=== PATIENT | male | born 1990 | race African-American/Black ===

== ENCOUNTER 2022-09-19 10:26 | Outpatient (RCR) | payer OTHER, SELFPAY ==
[2022-09-25 12:19] LABS: Hematocrit 49.1 % (38.5-50.0); Hemoglobin 15.4 g/dL (13.2-17.1); MCH 21.4 pg (27.0-33.0); MCV 68.2 fL (80.0-100.0); RDW 17.1 % (11.0-15.0)
== END 2022-09-22 12:29 ==
LOC: AMCINF 10:26
PROVIDERS: Visit Provider Internal Medicine
DX: R71.8 Other abnormality of red blood cells (principal)
CPT/HCPCS: 36415; 83021; 85660

== ENCOUNTER 2024-03-17 08:47 | Outpatient (CLI) | payer OTHER, SELFPAY ==
--- NOTE | 2024-04-14 10:14 | WPDSLEEPSTUD ---
Sleep Study Date of Study: 03/17/24 Ordering Provider: Kodi Roque APRN Interpreting Physician: Felicity He MD Sleep Study Type: Polysomnogram Height: 1.83 m Weight: 170.097 kg Body Mass Index: 50.8 Neck Circumference (inches): 19 [place]: 6 Reason for Sleep Study Loud snoring, multiple night time awakenings, witnessed apneas Sleep History Benson Senior is a 34-year-old man with snoring for years, worsening with weight gain. His has witnessed him having apneas during sleep. His medical comorbidities include anxiety, seasonal allergies with asthma and low back pain. He wakes up numerous times throughout the night. He has difficulty falling asleep and staying asleep. He does not awaken from sleep feeling short of breath nor does he awaken at night with heartburn, belching or coughing. He constantly snores, and frequently this is loud enough that others complain. He frequently has difficulty sleeping when he has a cold. He never wakes up gasping for breath at night but he does frequently has breathing problems at night observed by others. He does not sweat excessively at night. He frequently notices his heart pounding or beating irregularly at night. He rarely falls asleep during the day, never falls asleep involuntarily or while driving. He rarely has loss of muscle tone with strong emotion. He rarely has daytime difficulties due to excessive sleepiness. He is an financial administrative assistant. He occasionally feels paralyzed on waking or falling asleep. He never has vivid dreamlike scenes upon awakening or falling asleep. He occasionally feels afraid to go to sleep. He rarely has nightmares. He occasionally remembers his dreams. He rarely has racing thoughts. He occasionally feels sad, depressed, or anxious. He rarely has muscular tension. He never notices parts of his body jerking. He does not kick at night. He does not have crawling or aching feelings in his legs. He does not have any kind of leg pain at night. He rarely has morning jaw pain. He does not grind his teeth during sleep. He occasionally is bothered by pain during the day. He has never awakened by pain during the night. He never wakes up feeling stiff in the morning. He rarely wakes up with sore achy muscles. He occasionally wakes up with pain in the neck and spine. He has fatigue. His normal bedtime is between 8:00 p.m. and 10:00 p.m., falling asleep within 20-30 minutes, waking 3 or more times every night for less than a minute. Sometimes he adjust his position and returns to sleep. His normal wake time is 7:00 a.m.. On weekends, bedtime is later, between 10:00 p.m. and 12 midnight, wake time is 7:00 a.m.. He estimates getting at most 6 hours of sleep per night. He does not generally take naps in the afternoon or evening. A short nap lasting 10-15 minutes is not refreshing. He is usually drowsy for 1 hour after waking. He feels better in the morning compared to other times of day. Habits: Tobacco: never smoker Caffeine: none Alcohol: none Recreational substances: none PMFSH Past Medical History Medical History Anxiety Mild intermittent asthma Chronic bilateral low back pain with sciatica Obesity (BMI 30-39.9) Snoring Social History Social History Smoking status: Never smoker Alcohol intake: never Substance use: never Living arrangements: with family Occupation/Education: occupation Medications Home Medications ?Medication ?Instructions ?Recorded ?Confirmed ?Type albuterol sulfate 90 mcg/actuation 2 puff inhalation Q8H PRN 12/30/23 12/31/23 History aerosol inhaler cetirizine 10 mg capsule (All Day 10 mg PO DAILY PRN 12/30/23 12/31/23 History Allergy (cetirizine)) fluticasone propionate 50 2 spray intranasal DAILY PRN 12/30/23 12/31/23 History mcg/actuation nasal spray,suspension (Flonase Allergy Relief) eszopiclone 2 mg tablet 2 mg PO ONCE #1 tablet 12/31/23 12/31/23 Rx Sleep Procedure A full night polysomnogram using the [employer] multi-channel system recorded the standard physiologic parameters including EEG, EOG, submentalis EMG, anterior tibialis EMG, EKG, body position, nasal and oral airflow using nasal pressure sensor and thermistor. Respiratory parameters of chest and abdominal movements were recorded with Respiratory Inductance Plethysmography belts. Oxygen saturation was recorded by pulse oximetry. Video monitoring was also performed. Sleep stages, periodic limb movements, and EEG arousals were scored in 30 second epochs according to the criteria of the AASM Scoring Manual. The Apnea-Hypopnea Index was calculated using CMS guidelines for definition of hypopnea while scoring respiratory events. The patient did not meet criteria early enough in the night for a split night study so this was conducted as a basic nocturnal polysomnogram. Sleep Architecture The total recording time was 513.4 minutes. The total sleep time was 371.0 minutes. Sleep latency was 6.9 minutes. REM latency was 264.5 minutes. Sleep efficiency was 72.3%. The patient had 85 awakenings for an awakening index of 13.7. Wake after sleep onset time was 135.0 minutes. The patient spent 108.5 minutes, 29.2% of total sleep time in Stage N1. The patient spent 217.5 minutes, 58.6% in Stage N2. The patient spent 1.5 minutes, 0.4% in Stage N3. The patient spent 43.5 minutes, 11.7% in Stage REM sleep. Respiratory Analysis The patient had 43 hypopneas, 21 obstructive apneas, 2 mixed apneas, and 6 central apneas for an overall Apnea Hypopnea Index of 11.6. The REM Apnea Hypopnea Index was 71.7. The NREM Apnea Hypopnea Index was 4.4. The patient had a Central Apnea Hypopnea Index of 1.0. The supine apnea-hypopnea index is 3.6, the nonsupine index is 16.1. There were no Respiratory Effort Related Arousals. The Respiratory Disturbance Index is 18.9 events per hour. There was no evidence of Kris-Baker Respirations. Arousals There were 219 total arousals for an arousal index of 35.4. There were 154 spontaneous arousals for an index of 24.9. There were 37 arousals due to respiratory events for an index of 6.0. There were no arousals due to periodic limb movements. There were 28 arousals due to isolated limb movements for an index of 4.5. Periodic Limb Movements The patient had 41 isolated limb movements with an index of 6.6. The patient had no periodic limb movements. Patient had a total of 41 limb movements with a total limb movement index of 6.6. Oximetry Data The patient had an average oxygen saturation of 92.9% in sleep with a minimum oxygen saturation of 82% and a maximum oxygen saturation of 98%. The patient had 75 oxygen desaturations that were 4% or greater resulting in an Oxygen Desaturation Index of 12.1. The patient spent 1.9 minutes, 0.4% of total sleep time with an oxygen saturation below 88%. Snoring Profile Snoring was mild and continuous. Cardiac Profile EKG showed normal sinus rhythm, average pulse rate of 66 bpm with a minimum pulse of rate of 51 bpm and a maximum pulse rate of 94 bpm.? No arrhythmias noted. EEG Profile Unremarkable, no evidence of seizures. Assessment and Plan Assessment and Plan (1) Obstructive sleep apnea: Code(s): G47.33 - Obstructive sleep apnea (adult) (pediatric) Status: Acute Assessment and Plan: This basic nocturnal polysomnogram March 17, 2024 shows mild obstructive sleep apnea, the apnea-hypopnea index is 11.6 with desaturation 82% and snoring. Patient had extremely fragmented sleep, had constant shifts between wake, stage 1 and stage 2 sleep. He had fragmented REM. His REM apnea-hypopnea index was 66.2. During the entire night, nonsupine sleep had a higher AHI 16.1 compared to supine sleep 3.6. He had extraordinarily fragmented sleep with constant shifts between wake, stage 1 and stage 2 sleep. This patient has a medical comorbidity of anxiety and as such he qualifies for a CPAP titration with mild obstructive sleep apnea. With anxiety and fragmented sleep he would not be a good candidate for auto PAP. I recommend he has a full night CPAP titration with a sleep aid available, for use if needed, at the sleep lab. He should not nap on the day of the study. He should not take the sleep aid until the start of the sleep test. Patient has excellent sleep hygiene. He has complains of allergies and asthma. These conditions should be well treated prior to CPAP titration. BMI is 50. Weight management is advised. Clinical data suggests that weight loss of 10% can reduce the severity of respiratory events and snoring and improve AHI by as much as 25%. Data The data obtained during this sleep study is adequate for interpretation. Certification This sleep study has been reviewed by a board certified sleep medicine physician.
[2024-04-14 10:52] VITALS: BMI 50.8
== END 2024-03-18 06:29 | disposition home or self-care (01) ==
LOC: ANHCSM 08:49
PROVIDERS: PCP Family Medicine; Visit Provider Nurse Practitioner Family
DX: G47.33 Obstructive sleep apnea (adult) (pediatric) (principal)
CPT/HCPCS: 95810

== ENCOUNTER 2024-05-09 09:16 | Emergency (ER) | payer OTHER, SELFPAY ==
[2024-05-09 09:24] VITALS: BP 114/82; PULSE 65; RESP 16; TEMP 36.3; O2SAT 100
--- NOTE | 2024-05-09 09:34 | ED.URI ---
HPI - URI/Sore Throat General Chief Complaint: Upper Respiratory Infection Stated Complaint: sinus problem Time Seen by Provider: 05/09/24 09:21 Source: patient Mode of arrival: ambulatory Limitations: no limitations History of Present Illness HPI Narrative: Patient is a 34 male who presents with 4 days sinus congestion, sinus pressure, lost taste and smell started yesterday. Denies any fever, chills, sore throat, nausea vomiting, diarrhea. Does report slight intermittent cough. Has been taking Sudafed. Related Data Home Medications ?Medication ?Instructions ?Recorded ?Confirmed ?Last Taken ?Type albuterol sulfate 90 mcg/actuation 2 puff inhalation Q8H PRN 12/30/23 12/31/23 Unknown History aerosol inhaler cetirizine 10 mg capsule (All Day 10 mg PO DAILY PRN 12/30/23 12/31/23 Unknown History Allergy (cetirizine)) fluticasone propionate 50 2 spray intranasal DAILY PRN 12/30/23 12/31/23 Unknown History mcg/actuation nasal spray,suspension (Flonase Allergy Relief) Allergies Allergy/AdvReac Type Severity Reaction Status Date / Time No Known Allergies Allergy Unverified 12/31/23 14:36 Review of Systems Review of Systems: All systems reviewed & are unremarkable except as noted in HPI and below Constitutional: Constitutional: Denies chills, Denies fatigue, Denies fever(s), Denies headache(s), Denies malaise and Denies weakness Eyes: Eyes: Denies blurry vision, Denies itchy eyes and Denies loss of vision ENT: Denies otalgia, Denies headache(s), Reports nasal congestion, Denies sinus pain, Reports sinus pressure and Denies sore throat Cardiovascular: Cardiovascular: Denies chest pain, Denies irregular heart rhythm and Denies dyspnea Respiratory: Respiratory: Reports cough and Denies dyspnea Gastrointestinal: Gastrointestinal: Denies abdominal pain, Denies diarrhea, Denies nausea and Denies vomiting Musculoskeletal: Musculoskeletal: Denies back pain, Denies myalgias and Denies arthralgias Integumentary/Breasts: Skin/Breast: Denies pruritus and Denies rash Neurologic: Denies headache(s), Denies loss of vision and Denies weakness Psychiatric: Psychiatric: Reports no additional psychiatric complaints Endocrine: Endocrine: Denies fatigue Allergic/Immunologic: Allergic/Immunologic: Denies itchy eyes PMFSH Past Medical History Medical History Anxiety Mild intermittent asthma Chronic bilateral low back pain with sciatica Obesity (BMI 30-39.9) Snoring Social History Social History Smoking status: Never smoker Alcohol intake: never Substance use: never Living arrangements: with family Occupation/Education: occupation Comments At time of signature, agree with nursing past medical, surgical, social and family history. There is no relevant family history pertinent to the presenting complaint. Exam Const: General: cooperative, healthy appearing, comfortable, no acute distress and well nourished Nutritional Appearance: well nourished Orientation/consciousness: patient oriented x3 Limitations: no limitations HENMT: Head: normal to inspection, normocephalic and atraumatic Ears: hearing grossly normal bilaterally, external ears normal, TM's normal bilaterally, EAC's normal and no periauricular adenopathy Face/Nose/Sinus: Normal external nose present, Abnormal mucous membranes and turbinates present erythematous bilateral and diffuse, normal facial exam, sinuses nontender and face symmetric Face and sinus: normal facial exam, sinuses nontender and face symmetric Mouth: Yes Normal oral and palatal mucosa present, Yes lip normal, Yes tongue normal, Yes Normal salivary glands and ducts present, Yes oropharynx normal and Yes moist mucous membranes Teeth and gingiva: dentition normal Throat: posterior oropharynx normal, tonsils normal and uvula midline Eyes: General: appearance normal, both eyes and all related structures Alignment and Position: alignment normal and position normal Periorbital: periorbital findings normal Eyelids: eyelids normal Pupils: Equal, round and reactive pupils present Neck: Neck: normal visual inspection, full ROM, no lymphadenopathy and supple Chest: Chest palpation & inspection: normal inspection of the chest and normal palpation of entire chest wall Resp: Effort & Inspection: normal respiratory effort and able to speak in complete sentences Auscultation: clear to auscultation bilaterally, no crackles, no rales, no rhonchi and no wheezes Cardio: Rate: regular rate Rhythm: regular rhythm Heart sounds: S1 normal heart sound present and S2 normal heart sound present GI: Inspection: normal to inspection Skin: General skin exam: normal color and no rashes or lesions noted Neuro: General: patient oriented x3 and moves all extremities Cranial nerves: Yes Equal, round and reactive pupils present Speech: normal speech Gait exam (Neuro): Normal gait present Extrem: General: normal to inspection, full ROM and no edema Psych: Appearance: grossly normal and well kempt Mental Status: mental status grossly normal Speech and movement: Normal speech and movement present Affect: normal affect Attitude: cooperative Thought process: Normal thought process present Course Course Emergency Course: Discharge instructions reviewed with patient, as well as provided in writing per nursing staff. The instructions also include specific and strict return/GO TO THE ER as well as f/u information. All questions have been answered, and the patient deny any further questions with discharge and discharge plan. Portions of this record may have been created with voice recognition software Level of Care: Express Care Visit Vital Signs Vital signs: Vital Signs Temperature 36.3 C L 05/09/24 09:24 Pulse Rate 65 05/09/24 09:24 Respiratory Rate 16 05/09/24 09:24 Blood Pressure 114/82 05/09/24 09:24 Pulse Oximetry 100 05/09/24 09:24 Oxygen Delivery Room Air 05/09/24 09:24 Temperature 36.3 C L 05/09/24 09:24 Pulse Rate 65 05/09/24 09:24 Respiratory Rate 16 05/09/24 09:24 Blood Pressure 114/82 05/09/24 09:24 Pulse Oximetry 100 05/09/24 09:24 Oxygen Delivery Room Air 05/09/24 09:24 Reviewed MDM - URI/Sore Throat MDM Narrative Medical decision making narrative: Pt well hydrated appearing, in no respiratory distress, hemodynamically stable. Recommend supportive care. The patient is stable at time of discharge the clinical impression was discussed and the patient was given the opportunity to ask questions, which were addressed as completely as possible given the information available at present. Anticipatory guidance and return to care precautions were discussed and the importance of primary care follow-up was stressed and encouraged. The patient voiced understanding of the plan, indications to return, and the need for follow-up. Differential diagnosis considered: Bronchitis, Camara virus, strep pharyngitis, allergic rhinitis, upper respiratory tract infection, sinusitis, rhinosinusitis, nasopharyngitis. viral pharyngitis, otitis media, otitis externa, otitis effusion, foreign body, cerumen impaction, viral syndrome, and influenza.? Exam findings show no acute concerns or changes; patient is non-toxic appearing and is in no distress.? Patient is appropriate for outpatient treatment and follow-up.? Medical Records Attestation: I reviewed the patient's medical records. Lab Data Attestation: I reviewed the patient's lab results. Labs: Lab Results 05/09/24 Range/Units 09:27 POC Influenza A Ag Negative (Negative) POC Influenza B Ag Negative (Negative) POC SARS CoV-2 Ag Negative (Negative) Discharge Plan Discharge Clinical Impression: Upper respiratory infection Qualifiers: URI type: acute nasopharyngitis (common cold) Qualified Code(s): J00 - Acute nasopharyngitis [common cold] Patient Disposition: Home, Self-Care Condition: Stable Instructions: Upper Respiratory Infection (ED) Additional Instructions: Your Covid and flu are both negative Your symptoms are likely due to a viral illness, which is not treated with antibiotics. Viral symptoms can be present for up to a few weeks. -For pain/fever, you may take: Tylenol 650-1000mg by mouth every 4-6 hours. Do not exceed 4000mg in 24 hours. Advil (Ibuprofen) 600 mg by mouth every 6 hours. Do not exceed 2400mg in 24 hours. 8 AM: Tylenol 11 AM: Ibuprofen 2 PM: Tylenol 5 PM: Ibuprofen 8 PM: Tylenol 11 PM: Ibuprofen 2 AM: Tylenol 5 AM: Ibuprofen -Antihistamine medication such as Benadryl/Zyrtec at night and Claritin/Cathryn during the day can help improve symptoms. -Use Flonase twice a day for 5 days then daily to help reduce the inflammation and dry up your sinuses. Symptomatic treatment of a sinus infection aims to relieve symptoms. These treatments do not shorten the duration of illness. -Nasal decongestant sprays, including oxymetazoline (Afrin) and phenylephrine (Juan Carlos-Synephrine), can be used to temporarily treat congestion. However, these sprays should not be used for more than two to three days due to the risk of rebound congestion (when the nose becomes congested constantly unless the medication is used repeatedly), possible addiction, and long-term consequences of frequent use, including persistent nasal dryness and crusting, which is very difficult to treat once it has developed. -You can also use Sudafed behind the pharmacy counter(12 or 24 hour). Be sure to drink plenty of water with these medications at least 8 ounces with every dose and it is important to drink 8 to 10 glasses of water per day. Water is a natural decongestant -Eat and drink things that are easy to swallow, like tea or soup, or popsicles. -Oral rinses such as: Salt water gargles and/or may use topical anesthetic (eg. Chloraseptic spray) or lozenges to relieve dryness or throat pain). -Frequent hand washing or hand cytopathologist is one of the best ways to prevent spread of infection. -Using a vaporizer or humidifier at night will also help thin secretions and help with coughing up phlegm. Call your Primary Care Doctor and make a follow-up appointment in 3 days. If your cough worsens, you develop a fever greater than 103, you develop shaking chills, a fast heartbeat, trouble breathing and/or feel you are are breathing much faster than usual, call your Primary Care Doctor or go to the ER. Patient Language: Norwegian Prescriptions: New fluticasone propionate [Flonase Allergy Relief] 50 mcg/actuation spray,suspension 1 spray intranasal DAILY Qty: 16 0RF Rx Instructions: administer into each nostril No Action albuterol sulfate 90 mcg/actuation HFA aerosol inhaler 2 puff inhalation Q8H PRN All Day Allergy (cetirizine) 10 mg capsule 10 mg PO DAILY PRN fluticasone propionate [Flonase Allergy Relief] 50 mcg/actuation spray,suspension 2 spray intranasal DAILY PRN Rx Instructions: administer into each nostril eszopiclone 2 mg tablet 2 mg PO ONCE Qty: 1 0RF Rx Instructions: Take tablet with you to sleep center for sleep study, if needed eszopiclone 3 mg tablet 3 mg PO ONCE Qty: 1 0RF Rx Instructions: Take tablet with you to sleep center for sleep study Follow-up/Referrals: Erinn,Torie Chacko MD [Primary Care Provider] - 3 Days Stand Alone Forms: Work/School Release IP Time of Disposition: 10:01
[2024-05-09 09:46] LABS: EDCOVIDSCREEN Negative (Negative); EDINFLUASCREEN Negative (Negative); EDINFLUBSCREEN Negative (Negative)
== END 2024-05-09 10:06 | disposition home or self-care (01) ==
PROVIDERS: Emergency Provider Nurse Practitioner Family; PCP Family Medicine
DX: J00 Acute nasopharyngitis [common cold] (principal); Z20.822 Contact with and (suspected) exposure to COVID-19; J45.909 Unspecified asthma, uncomplicated; E66.9 Obesity, unspecified; Z68.42 Body mass index [BMI] 45.0-49.9, adult
CPT/HCPCS: 87426; 87804; 99213; G0463

== ENCOUNTER 2024-07-07 07:47 | Outpatient (CLI) | payer OTHER, SELFPAY ==
--- OUTSIDE RECORDS SUMMARY | 2024-06-02 09:14 | XMS_ITS | Clinical Summary ---
Author Organization [facility] [place] [address] [facility] Address [address] [place] [address] Care Team Providers Care Sanitary Napkin Machine Tender Name Role Phone Major Dyer MD Primary Care Provider Allergies No known active allergies Medications No known medications Active Problems No known active problems Medical History Medical History Date Comments Anxiety Depression Family History Medical History Relation Name Comments Anxiety disorder Mother Depression Mother Relation Name Status Comments Mother Social History Tobacco Use Types Packs/Day Years Used Date Smoking Tobacco: Never Smokeless Tobacco: Never Personal Safety Answer Date Recorded Getting School Help Needed Not on file 04/25 Sex and Gender Information Value Date Recorded Sex Assigned at Not on file Legal Sex Male 11:09 AM CDT Gender Identity Not on file Sexual Orientation Not on file Obstetrics History Last Filed Vital Signs Vital Sign Reading Time Taken Comments Blood Pressure 162/92 09/18/2020 11:26 AM CDT Pulse 80 09/18/2020 11:26 AM CDT Temperature 36.4 C (97.5 F) 09/18/2020 11:26 AM CDT Respiratory Rate 20 09/18/2020 11:2 6 AM CDT Oxygen Saturation 98% 09/18/2020 11: 26 AM CDT Inhaled Oxygen Concentration - - Weight 163.9 kg (361 lb 6.4 oz) 021 11:26 AM CDT Height 184.6 cm (6' 0.68) 09/18/2020 1 1:26 AM CDT Body Mass Index 48.11 09/18/2020 11:26 AM CDT Plan of Treatment Not on file Insurance [facility] Care Teams Sanitary Napkin Machine Tender Relationship Specialty Start Date End Date Major Dyer MD [address] [place], [place] [id number] [address] PCP - General Family Medicine 09/18/20
--- OUTSIDE RECORDS SUMMARY | 2024-06-02 09:14 | XMS_ITS | Referral Summary ---
Author Organization [facility] [place] [address] [facility] Address [address] [place] [address] Care Team Providers Care Clay Transporter Name Role Phone Major Dyer MD Primary Care Provider Allergies No known active allergies Medications No known medications Active Problems No known active problems Social History Tobacco Use Types Packs/Day Years Used Date Smoking Tobacco: Never Smokeless Tobacco: Never Personal Safety Answer Date Recorded Getting School Help Needed Not on file 04/25 Sex and Gender Information Value Date Recorded Sex Assigned at Not on file Legal Sex Male 11:09 AM CDT Gender Identity Not on file Sexual Orientation Not on file Last Filed Vital Signs Vital Sign Reading [...] Plan of Treatment Not on file Insurance [employer] [facility] H[facility]/PPO Address: [address] [address] Care Teams Clay Transporter Relationship Specialty Start Date End Date Major Dyer MD [address] [place] [address] [place] [address] PCP - General Family Medicine 09/18/20
--- OUTSIDE RECORDS SUMMARY | 2024-06-02 09:14 | XMS_ITS | Clinical Summary ---
Author Organization [facility] [employer] [place] Address [address] [place] [address] Care Team Providers Care Dairy Machine Operator Farmworker Name Role Phone Lynda Chen MD Primary Care Provider [phone] Allergies No known active allergies Medications albuterol sulfate HFA 90 mcg/actuation aerosol inhalerIndicatio ns:Mild intermittent asthma, unspecified whether complicated Take 2 Puffs by inhalation every 6 hours as needed for Shortness of Breath. 8.5 Gram 03/18/19 25 Active fluticasone propionate (FLONASE) 50 mcg/spray [place], Suspension nasal inhaler Administer 2 Sprays in each nostril daily. 16 Gram 03/18/19 25 Active cetirizine (ZyrTEC) 10 mg tablet Take 1 Tablet (10 mg) by mouth daily. 100 Tablet 05/18/19 25 Active tirzepatide, weight loss, (Zepbound) 5 mg/0.5 mL Pen InjectorIndicati ons:Morbid obesity with body mass index of 40.0-49.9 (CMS/HCC) Inject 0.5 mL by subcutaneous injection every 7 days. 6 mL 05/24/19 25 Active cetirizine (ZyrTEC) 10 mg tabletIndication s:Pressure sensation in right ear Take 1 Tablet (10 mg) by mouth daily. 100 Tablet 10/20/19 24 025 Discontin ued(Reord er) tirzepatide, weight loss, (Zepbound) 5 mg/0.5 mL Pen InjectorIndicati ons:Morbid obesity with body mass index of 40.0-49.9 (CMS/HCC) Inject 0.5 mL by subcutaneous injection every 7 days. 2 mL 1 04/19/19 25 025 Discontin ued(Reord er) tirzepatide, weight loss, (Zepbound) 5 mg/0.5 mL Pen InjectorIndicati ons:Morbid obesity with body mass index of 40.0-49.9 ([facility]/HCC) Inject 0.5 mL by subcutaneous injection every 7 days. 2 mL 05/18/19 025 Discontin ued(Reord er) Active Problems Problem Noted Date Diagnosed Date Low HDL (under 40) 03/18/2024 Major depressive disorder, r ecurrent episode, moderate degree 02/18/2022 Non-seasonal allergic rhinitis 01/15/2022 Mild intermittent asthma without complication Anxiety and depression 01/15/2022 Snoring 01/15/2022 Daytime sleepiness 01/15/2022 Tinea versicolor 01/15/2022 Resolved Problems Problem Noted Date Diagnosed Date Resolved Date Cerumen impaction 04/16/2011 02/03/2023 Encounters Date Type Department Care Team Description 05/24/2024 External Device Data STL ABSTRACTION Provider, Abstract 05/23/2024 Orders Only [facility] [employer] [place] [address] [place] [phone] Neha Moses, MATHEW Morbid obesity with body mass index of 40.0-49.9 ([facility]/HCC) 05/17/2024 2:00 PM CDT Office Visit [facility] [employer] [place] [address] [place] [phone] Neha Moses, MATHEW Morbid obesity with body mass index of 40.0-49.9 ([facility]/HCC) (Primary Dx); Daytime sleepiness 05/11/2024 External Device Data STL ABSTRACTION Provider, Abstract 04/30/2024 External Device Data STL ABSTRACTION Provider, Abstract 04/29/2024 External Device Data STL ABSTRACTION Provider, Abstract 04/26/2024 External Device Data STL ABSTRACTION Provider, Abstract 04/19/2024 2:00 PM JDE DEVELOPER Office Visit [facility] [employer] [place] [address] [place] [phone] Mireille Gaona, CODY Morbid obesity with body mass index of 40.0-49.9 (CMS/HCC) (Primary Dx) 04/19/2024 External Device Data STL ABSTRACTION Provider, Abstract 03/29/2024 External Device Data STL ABSTRACTION Provider, Abstract 03/18/2024 10:30 AM JDE DEVELOPER Office Visit [facility] [employer] [facility] [address] [place] [address] Lynda Chen MD Morbid obesity with body mass index of 40.0-49.9 (CMS/HCC) (Primary Dx); Mild intermittent asthma, unspecified whether complicated; Major depressive disorder, recurrent episode, moderate degree (CMS/HCC); Atypical chest pain; Sleep apnea, unspecified type; Screening for diabetes mellitus 03/16/2024 External Device Data STL ABSTRACTION Provider, Abstract 03/16/2024 External Device Data STL ABSTRACTION Provider, Abstract from Last 3 Months Immunizations Immunization Administration Dates Next Due (ADACEL/BOOSTRIX)(10 YR UP) TDAP VACCINE, 0.5ML, IM 10/13/2006 (PFIZER)(12 YR UP) COVID-19 VACCINE - EMERGENCY USE AUTHORIZATION, MRNA, [id number](PF) 30 MCG/0.3 ML IM SUSP 08/03/2020,07/13/2020 (RECOMBIVAX HB/ENGERIX-B)(0- 19 YRS) HEPATITIS B VACCINE 5 MCG/0.5 ML OR 10 MCG/0.5 ML PED OR ADOL 3 DOSE (PF), IM 10/13/2006 INFLUENZA VACCINE QUADRIVALENT 6 MOS UP IM 12/08 Meningococcal ACWY Vaccine, Unspecified Formulat ion 10/13/2006 Family History Medical History Relation Name Comments No Known Problems Father No Known Problems Half-Brother No Known Problems Half-Sister 1 No Known Problems Half-Sister 2 No Known Problems Maternal Grandfather Breast Cancer Maternal Grandmother Prema Senior Other Mother abnormal mammog dylan, had biopsy, no cancer Cancer Paternal Grandfather Cancer Paternal Grandmother Relation Name Status Comments Father Alive Half-Brother Alive Half-Sister 1 Alive Half-Sister 2 Alive Maternal Grandfather Alive Maternal Grandmother Prema Senior Mother Alive Paternal Grandfather Paternal Grandmother Social History Tobacco Use Types Packs/Day Years Used Date Smoking Tobacco: Never Smokeless Tobacco: Never Tobacco Cessation:Counseling Given: Not Answered Alcohol Use Standard Drinks/Week Comments Never 0 (1 standard drink = 0.6 oz pur e alcohol) Sex and Gender Information Value Date Recorded Sex Assigned at Not on file Legal Sex Male 3:41 PM CDT Gender Identity Not on file Sexual Orientation Not on file Last Filed Vital Signs Vital Sign Reading Time Taken Comments Blood Pressure 128/78 05/17/2024 1:59 PM CDT Pulse 64 05/17/2024 1:59 PM CDT Temperature 36.2 C (97.2 F) 05/17/2024 1:59 PM CDT Respiratory Rate 18 05/17/2024 1:59 PM CDT Oxygen Saturation 98% 05/17/2024 1:59 PM CDT Inhaled Oxygen Concentration - - Weight 157.9 kg (348 lb) 05/17/2024 1:59 PM CDT Height 185.4 cm (6' 1) 05/17/2024 1:59 PM CDT Body Mass Index 45.91 05/17/2024 1:59 PM CDT Plan of Treatment Upcoming Encounters Date Type Department Care Team (Late st Contact Info) Description 06/10/2024 8:20 AM CDT Office Visit [facility] [employer] [facility] [place] [address] [place] [address] 08/19/2024 10:00 AM CDT Office Visit [facility] [employer] [place] [address] [place] [address] Lynda Chen MD [address] [address] Health Maintenance Due Date Last Done Comments HEPATITIS B VACCINES (2 of 3 - 3-dose series) 11/10/2006 10/13/2006 DTAP/TDAP/TD VACCINES (2 - T d or Tdap) 10/13/2016 10/13/2006 INFLUENZA VACCINE (#1) 2023 , 12/08/2018 COVID-19 Vaccine (3 2023-2 5 season) 2023 08/03/2020, 07/13/2020 Preventative Visit- Commercial 02/24/2024 04/14/2011 HPV VACCINES Aged Out No longer eligi ble based on patient's age to complete this topic Insurance ALLEGIANCE OPEN ACCESS ALLEGIANCE OPEN ACCESS * Guarantor: [employer] Account Type Relation to Patient Date of Phone Billing Address Corporate Employer ATTN: [employer]ENT[employer]EREZ [address] [address] Care Teams Dairy Machine Operator Farmworker Relationship Specialty Start Date End Date Lynda Chen MD [address] [place] [phone] PCP - General Internal Medicine 10/21/23
--- OUTSIDE RECORDS SUMMARY | 2024-06-02 09:14 | XMS_ITS | Clinical Summary ---
Author Organization [facility] Curse Address [address] [place] [address] Care Team Providers Care Account Maintenance Representative Name Role Phone Unavailable Primary Care Provider Unavailabl e Source Comments [facility],non-owned Affiliates and Associated Physician Practices is amultiple site organization consisting of ambulatory clinics and hospital sitesin [place], [place], [place] and [place]. This disclosure is being madepursuant to the Care Everywhere program and may not contain all information available regarding this patient. Last updated 17.[facility] Curse Allergies No known active allergies Medications * Be aware that medications may not be up to date on this document. Alwaysverify current medications with the patient. Medication Sig Dispensed Refills Start Date End Date Status multivitamin daily (THERAGRAN) tablet Take 1 Tab by mouth daily with food Active Talc (ZEASORB) Active clotrimazole (LOTRIMIN AF) 1 % cream Apply to affected area 2 times daily Active Active Problems Problem Noted Date Diagnosed Date Routine general medical exam ination at a health care facility 04/16/2011 Cerumen impaction 04/16/2011 Immunizations Name Administration Dates Next Due HEP B VACCINE, PED/ADOL 10/13/2006 MENINGOCOCAL MENINGITIS 10/13/2006 TDAP (7yrs+) 10/13/2006 Family History Medical History Relation Name Comments Cancer Maternal Grandmother breast Relation Name Status Comments Maternal Grandmother Social History Tobacco Use Types Packs/Day Years Used Date Smoking Tobacco: Never Smokeless Tobacco: Never Alcohol Use Standard Drinks/Week Comments No 0 (1 standard drink = 0.6 oz pur e alcohol) Sex and Gender Information Value Date Recorded Sex Assigned at Not on file Gender Identity Not on file Sexual Orientation Not on file Last Filed Vital Signs Vital Sign Reading Time Taken Comments Blood Pressure 130/62 11/23/2015 3:35 PM CDT Pulse 57 11/23/2015 3:35 PM CDT Temperature 36.7 C (98 F) 11/23/2015 3:35 PM CDT Respiratory Rate 20 11/23/2015 3:35 PM CDT Oxygen Saturation 99% 11/23/2015 3:35 PM CDT Inhaled Oxygen Concentration - - Weight 145.2 kg (320 lb) 11/23/2015 3:35 PM CDT Height 185.4 cm (6' 1) 11/23/2015 3:35 PM CDT Body Mass Index 42.22 11/23/2015 3:35 PM CDT Plan of Treatment Health Maintenance Due Date Last Done Comments HEPATITIS B VACCINE (2 of 3 - 3-dose series) 11/10/2006 10/13/2006 HIV SCREENING 2007 HEPATITIS C SCREENING 04/03/2010 DTAP/TDAP/TD VACCINES (2 - T d or Tdap) 10/13/2016 10/13/2006 COVID-19 VACCINE (2023-2 5 season) 2023 DEPRESSION SCREENING 02/24/2024 INFLUENZA VACCINE (Season Ended) 2024 ZOSTER VACCINE (1 of 2) 2042 MENINGOCOCCAL GROUPS A/C/Y/W VACCINE Aged Out 10/13/2006 No longer eligible b ased on patient's age to complete this topic HIB VACCINE Aged Out No longer eligi ble based on patient's age to complete this topic HPV VACCINE Aged Out No longer eligi ble based on patient's age to complete this topic MENINGOCOCCAL (Group B) VACC INE SHARED DECISION-MAKING Aged Out No longer eligibl e based on patient's age to complete this topic PNEUMOCOCCAL VACCINE Aged Out No long er eligible based on patient's age to complete this topic
--- OUTSIDE RECORDS SUMMARY | 2024-07-07 07:59 | XMS_ITS | Clinical Summary ---
Author Organization [facility] [employer] [place] Address [address] [place] [address] Care Team Providers Care Comb Fixer Name Role Phone Lynda Chen MD Primary Care Provider [phone] Allergies No known active allergies Medications albuterol sulfate HFA 90 mcg/actuation aerosol inhalerIndicatio ns:Mild intermittent asthma, unspecified whether complicated Take 2 Puffs by inhalation every 6 hours as needed for Shortness of Breath. 8.5 Gram 5 Active fluticasone propionate (FLONASE) 50 mcg/spray [place], Suspension nasal inhaler Administer 2 Sprays in each nostril daily. 16 Gram 5 Active cetirizine (ZyrTEC) 10 mg tablet Take 1 Tablet (10 mg) by mouth daily. 100 Tablet 5 Active tirzepatide, weight loss, (Zepbound) 5 mg/0.5 mL Pen InjectorIndicati ons:Morbid obesity with body mass index of 40.0-49.9 (CMS/HCC) Inject 0.5 mL by subcutaneous injection every 7 days. 6 mL 5 Active Active Problems Problem Noted Date Diagnosed Date Sickle cell trait 06/13/2024 Alpha thalassemia trait 06/13/2024 Low HDL (under 40) 03/18/2024 Major depressive disorder, r ecurrent episode, moderate degree 02/18/2022 Non-seasonal allergic rhinitis 01/15/2022 Mild intermittent asthma without complication Anxiety and depression 01/15/2022 Snoring 01/15/2022 Daytime sleepiness 01/15/2022 Tinea versicolor 01/15/2022 Resolved Problems Problem Noted Date Diagnosed Date Resolved Date Cerumen impaction 04/16/2011 02/03/2023 Encounters Date Type Department Care Team Description 06/13/2024 Results Follow-Up [facility] [place] [address] [place] [phone] Lynda Chen MD HEMOGLOBIN A1C, CBC WITH DIFFERENTIAL, LIPID PANEL, Additional followed-up results: 2 06/10/2024 8:20 AM CDT Office Visit [facility] at [place] [address] [place] [phone] Screening for condition (Primary Dx); Morbid obesity with body mass index of 40.0-49.9 (CMS/HCC) 06/07/2024 External Device Data STL ABSTRACTION Provider, Abstract 05/24/2024 External Device Data STL ABSTRACTION Provider, Abstract 05/23/2024 Orders Only [facility] at [place] [address] [place] [address] Neha Moses, MATHEW Morbid obesity with body mass index of 40.0-49.9 (CMS/HCC) 05/17/2024 2:00 PM CDT Office Visit [place] [address] [place] [phone] Neha Moses, MATHEW Morbid obesity with body mass index of 40.0-49.9 (CMS/HCC) (Primary Dx); Daytime sleepiness 05/11/2024 External Device Data STL ABSTRACTION Provider, Abstract 04/30/2024 External Device Data STL ABSTRACTION Provider, Abstract 04/29/2024 External Device Data STL ABSTRACTION Provider, Abstract 04/26/2024 External Device Data STL ABSTRACTION Provider, Abstract 04/19/2024 2:00 PM SUBSTATION ENGINEER Office Visit [facility] [address] [place] [phone] Mireille Gaona, CODY Morbid obesity with body mass index of 40.0-49.9 (CMS/HCC) (Primary Dx) 04/19/2024 External Device Data STL ABSTRACTION Provider, Abstract from Last 3 Months Immunizations Immunization Administration Dates Next Due (ADACEL/BOOSTRIX)(10 YR UP) TDAP VACCINE, 0.5ML, IM 10/13/2006 (PFIZER)(12 YR UP) COVID-19 VACCINE - EMERGENCY USE AUTHORIZATION, MRNA, [id number](PF) 30 MCG/0.3 ML IM SUSP 08/03/2020,07/13/2020 (RECOMBIVAX [...] Sign Reading Time Taken Comments Blood Pressure 122/76 06/10/2024 8:27 AM CDT Pulse 64 05/17/2024 1:59 PM CDT Temperature 36.2 C (97.2 F) 05/17/2024 1:59 PM CDT Respiratory Rate 18 05/17/2024 1:59 PM CDT Oxygen Saturation 98% 05/17/2024 1:59 PM CDT Inhaled Oxygen Concentration - - Weight 154.2 kg (340 lb) 06/10/2024 8:27 AM CDT Height 185.4 cm (6' 1) 06/10/2024 8:27 AM CDT Body Mass Index 44.86 06/10/2024 8:27 AM CDT Plan of Treatment Upcoming Encounters Date Type Department Care Team (Late st Contact Info) Description 08/19/2024 10:00 AM CDT Office Visit [facility] at [facility] [email or web address] [place] [address] [email or web address] [address] Lynda Chen MD [address] [place] [address] Health Maintenance Due Date Last Done Comments HEPATITIS B VACCINES (2 of 3 - 3-dose series) 11/10/2006 10/13/2006 DTAP/TDAP/TD VACCINES (2 - T d or Tdap) 10/13/2016 10/13/2006 INFLUENZA VACCINE (#1) 2023 , 12/08/2018 COVID-19 Vaccine (3 - 2023-2 5 season) 2023 08/03/2020, 07/13/2020 Preventative Visit- Commercial 02/24/2024 04/14/2011 HPV VACCINES Aged Out No longer eligi ble based on patient's age to complete this topic Procedures Procedure Name Priority Date/Time Associated Diagnosis Comments TSH Routine 06/10/2024 8:03 AM CDT Screening for condition COMPREHENSIVE METABOLIC PANEL Routine 06/10/2024 8:03 AM CDT Screening for condition LIPID PANEL Routine 06/10/2024 8:03 AM CDT Screening for condition CBC WITH DIFFERENTIAL Routine 06/10/2024 8:03 AM CDT Screening for condition HEMOGLOBIN A1C Routine 06/10/2024 8:03 AM CDT Morbid obesity with body mass index of 40.0-49.9 (CMS/HCC) from Last 3 Months Results * (ABNORMAL) CBC WITH DIFFERENTIAL (06/10/2024 8:03 AM CDT) WBC 11.8(H) 3.8 - 10.8 Thousand/ uL [facility] RBC 7.02(H) 4.20 - 5.80 Million/u L [facility] HEMOGLOBIN 15.0 13.2 - 17.1 g/dL [facility] HEMATOCRIT 50.1(H) 38.5 - 50.0 % [facility] MCV 71.4(L) 80.0 - 100.0 fL [facility] MCH 21.4(L) 27.0 - 33.0 pg [facility] MCHC 29.9(L) 32.0 - 36.0 g/dL [facility] Comment: For adults, a slight decrease in the calculated MCHC value (in the range of 30 to 32 g/dL) is most likely not clinically significant; however, it should be interpreted with caution in correlation with other red cell parameters and the patient's clinical condition. RDW 17.5(H) 11.0 - 15.0 % [facility] PLATELETS 262 140 - 400 Thousand/ uL [facility] MPV 11.4 7.5 - 12.5 fL [facility] NEUTROPHIL ABSOLUTE 7,918(H) 1,500 - 7,800 cells/uL [facility] LYMPHOCYTE ABSOLUTE 2,773 850 - 3,900 cells/uL [facility] MONOCYTE ABSOLUTE 625 200 - 950 cells/uL [facility] EOSINOPHIL ABSOLUTE 448 15 - 500 cells/uL [facility] BASOPHILS ABSOLUTE 35 0 - 200 cells/uL [facility] NEUTROPHIL 67.1 % [facility] LYMPHOCYTES 23.5 % [facility] MONOCYTE 5.3 % [facility] EOSINOPHILS 3.8 % [facility] BASOPHILS 0.3 % [facility] Comment: Test Performed at: [facility] [address] [phone] Jose Elias Levin Blood 06/10/2024 8:03 AM CDT 06/11/2024 1:54 AM CDT us Lynda Chen MD HEMATOLOGY ORDERABLES Final Re sult Performing Organization Address City/[facility]/ZIP Code Phone Number [facility] [phone] [place] [address] [address] [place] [phone] * TSH (06/10/2024 8:03 AM CDT) Pathologist [facility] TSH 0.86 0.40 - 4.50 mIU/L [facility] Comment: Test Performed at: [place] [address] [address] [place] [address] AraceliRochelle [facility] Vo Blood 06/10/2024 8:03 AM CDT 06/11/2024 1:54 AM CDT us Lynda Chen MD CHEMISTRY ORDERABLES Final Res ult Performing Organization Address [facility]/ZIP Code Phone Number [facility] [phone] [place] [address] [place] [address] * (ABNORMAL) HEMOGLOBIN A1C (06/10/2024 8:03 AM CDT) Pathologist [facility] HEMOGLOBIN A1C 6.0(H) <5.7 % of total Hgb [facility] Comment: For someone without known diabetes, a hemoglobin A1c value between 5.7% and 6.4% is consistent with prediabetes and should be confirmed with a follow-up test. For someone with known diabetes, a value <7% indicates that their diabetes is well controlled. A1c targets should be individualized based on duration of diabetes, age, comorbid conditions, and other considerations. This assay result is consistent with an increased risk of diabetes. Currently, no consensus exists regarding use of hemoglobin A1c for diagnosis of diabetes for children. ESTIMATED AVERAGE GLUCOSE (MG/DL) 126 mg/dL [facility] ESTIMATED AVERAGE GLUCOSE (MMOL/L) 7.0 mmol/L [facility] Comment: Test Performed at: [place] [address] [address] [place] [id number] Jagu [facility] Vo Blood 06/10/2024 8:03 AM CDT 06/11/2024 1:53 AM CDT us Lynda Chen MD CHEMISTRY ORDERABLES Final Res ult [facility] [phone] [place] [address] [address] [place] [phone] * (ABNORMAL) LIPID PANEL (06/10/2024 8:03 AM CDT) CHOLESTEROL 134 <200 mg/dL [facility] [facility] HDL 33(L) > OR = 40 mg/dL [facility] TRIGLYCERIDE 48 <150 mg/dL [facility] [employer] [facility] LDL CALCULATED 87 mg/dL (calc) [facility] Comment: Reference range: <100 Desirable range <100 mg/dL for primary prevention; <70 mg/dL for patients with CHD or diabetic patients with > or = 2 CHD risk factors. LDL-C is now calculated using the [place] calculation, which is a validated novel method providing better accuracy than the Friedewald equation in the estimation of LDL-C. Geraldo JOHN et al. MARC. 2013;310(19): 7704-4053 (http://education.[employer]/faq/HDY055) CHOL/HDL RATIO 4.1 <5.0 (calc) [facility] NON-HDL CHOLESTEROL 101 <130 mg/dL (calc) [facility] Comment: For patients with diabetes plus 1 major ASCVD risk factor, treating to a non-HDL-C goal of <100 mg/dL (LDL-C of <70 mg/dL) is considered a therapeutic option. Test Performed at: [place] [address] [place] [address] Jose Elias Frey Blood 06/10/2024 8:03 AM CDT 06/11/2024 1:54 AM CDT us Lynda Chen MD CHEMISTRY ORDERABLES Final Res ult [facility] [phone] [place] [address] [address] [place] [phone] * COMPREHENSIVE METABOLIC PANEL (06/10/2024 8:03 AM CDT) GLUCOSE 82 65 - 99 mg/dL Apryl [facility] Comment: Fasting reference interval BUN 13 7 - 25 mg/dL [facility] William[facility]ino [facility] CREATININE 0.96 0.60 - 1.26 mg/dL [facility] William[facility]ino [facility] EGFR 108 > OR = 60 mL/min/1. 73m2 [facility] William[facility]ino [facility] BUN/CREAT RATIO SEE NOTE: 6 - 22 (calc) [facility] WilliamTino [facility] Comment: Not Reported: BUN and Creatinine are within reference range. SODIUM 139 135 - 146 mmol/L [facility]iia[facility]ino [facility] POTASSIUM 4.3 3.5 - 5.3 mmol/L [facility] William cash [facility] CHLORIDE 103 98 - 110 mmol/L Apryl William cash [facility] CO2 26 20 - 32 mmol/L Ap[facility] William cash [facility] CALCIUM 9.7 8.6 - 10.3 mg/dL [facility] cash [facility] TOTAL PROTEIN 7.6 6.1 - 8.1 g/dL [facility] cash [place] ALBUMIN 4.6 3.6 - 5.1 g/dL [facility] GLOBULIN 3.0 1.9 - 3.7 g/dL (calc) Apryl WilliamTino Mcnally ALBUMIN/GLOBULIN RATIO 1.5 1.0 - 2.5 (calc) [facility] BILIRUBIN TOTAL 0.4 0.2 - 1.2 mg/dL [facility]ino [facility] ALKALINE PHOSPHATASE 73 36 - 130 U/L [facility] AST 15 10 - 40 U/L [facility] cash Mc[facility] ALT 28 9 - 46 U/L [facility] Comment: Test Performed at: [place] [address] [address] [place] [phone] AraceliShayne [facility] Blood 06/10/2024 8:03 AM CDT 06/11/2024 1:54 AM CDT us Lynda Chen MD CHEMISTRY ORDERABLES Final Res ult [facility] [phone] [facility] [place] [address] [address] [place] [phone] from Last 3 Months Insurance ALLEGIANCE OPEN ACCESS ALLEGIANCE OPEN ACCESS ALLEGIANCE OPEN ACCESS * Guarantor: [employer] Account Type Relation to Patient Date of Phone Billing Address Corporate Employer ATTN: [employer]EREZ [address] [address] Care Teams Comb Fixer Relationship Specialty Start Date End Date Lynda Chen MD [address] [place] [address] PCP - General Internal Medicine 10/21/23
--- OUTSIDE RECORDS SUMMARY | 2024-07-07 08:00 | XMS_ITS | Referral Summary ---
Author Organization [facility] [address] [facility] Address [address] [place] [address] Care Team Providers Care Stone Chimney Mason Name Role Phone Major Dyer MD Primary [...] Treatment Not on file Insurance [employer] [facility] HMO/PPO Address: [address] [address] Care Teams Stone Chimney Mason Relationship Specialty Start Date End Date Major Dyer MD [address] [place] [address] [place] [address] PCP - General Family Medicine 09/18/20
--- OUTSIDE RECORDS SUMMARY | 2024-07-07 08:00 | XMS_ITS | Encounter Summary ---
Author Organization [facility] Address [address] [place] [address] Care Team Providers Care Handle And Vent Machine Operator Name Role Phone Lynda Chen MD Primary Care Provider [phone] Encounter Details Date Type Department Care Team (Late Contact Info) Description 06/13/2024 Results Follow-Up [facility] [place] [address] [place] [address] Lynda Chen MD [address] [place] [address] HEMOGLOBIN A1C, CBC WITH DIFFERENTIAL, LIPID PANEL, Additional followed-up results: 2 Social History Tobacco Use Types Packs/Day Years Used Date Smoking Tobacco: Never Smokeless Tobacco: Never Alcohol Use Standard Drinks/Week Comments Never 0 (1 standard drink = 0.6 oz pur e alcohol) Sex and Gender Information Value Date Recorded Sex Assigned at Not on file Legal Sex Male 3:41 PM CDT Gender Identity Not on file Sexual Orientation Not on file documented as of this encounter Plan of Treatment Upcoming Encounters Date Type Department Care Team (Late Contact Info) Description 08/19/2024 10:00 AM CDT Office Visit [facility] [address] [place] [address] Lynda Chen MD [address] [place] [address] documented as of this encounter Visit Diagnoses Diagnosis Sickle cell trait- Primary Sickle-cell trait Alpha thalassemia trait Thalassemia minor documented in this encounter Additional Health Concerns Assessment Noted Time PHQ-9 Depression Total Score: 2 01/24/20 25 11:00 AM VIOLIN TEACHER documented as of this encounter Care Teams Handle And Vent Machine Operator Relationship Specialty Start Date End Date Lynda Chen MD [address] [place] [id number] PCP - General Internal Medicine 10/21/23 documented as of this encounter
--- OUTSIDE RECORDS SUMMARY | 2024-07-07 08:00 | XMS_ITS | Clinical Summary ---
Author Organization [facility] Address [address] [place] [address] Care Team Providers Care Deputy Director Name Role Phone Unavailable Primary Care Provider Unavailabl e Source Comments [facility],non-owned Affiliates and Associated Physician Practices is amultiple site organization consisting of ambulatory clinics and hospital sitesin [place], [place], [place] and [place]. This disclosure is being madepursuant to the Care Everywhere program and may not contain all information available regarding this patient. Last updated 17.[facility] Allergies No known active allergies Medications * Be aware that medications may not be up to date on this document. Alwaysverify current medications with the patient. 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
--- OUTSIDE RECORDS SUMMARY | 2024-07-07 08:00 | XMS_ITS | Clinical Summary ---
Author Organization [facility] [address] [facility] Address [address] [place] [address] Care Team Providers Care Spaghetti Machine Operator Name Role Phone Major Dyer MD Primary [...] of Treatment Not on file Insurance R [facility] Care Teams Spaghetti Machine Operator Relationship Specialty Start Date End Date Major Dyer MD [address] [place], [place] [address] [place] [address] PCP - General Family Medicine 09/18/20
--- NOTE | 2024-08-01 22:46 | WPDSLEEPSTUD ---
Sleep Study Date of Study: 07/07/24 Ordering Provider: Kodi Roque APRN Interpreting Physician: Felicity He MD Sleep Study Type: CPAP Titration Height: 1.83 m Weight: 147.418 kg Body Mass Index: 44.0 Neck Circumference (inches): 18 Gerry: 6 Reason for Sleep Study * March 17, 2024 polysomnogram with mild obstructive sleep apnea, AHI 11.6, 82%; extremely fragmented sleep, REM AHI was 66.2. He returns for a CPAP titration. Sleep History This history is from his Mar 17, 2024 sleep study. Benson Senior is a 34-year-old man with snoring for years, worsening with weight gain. His has witnessed him having apneas during sleep. His medical comorbidities include anxiety, seasonal allergies with asthma and low back pain. He wakes up numerous times throughout the night. He has difficulty falling asleep and staying asleep. He does not awaken from sleep feeling short of breath nor does he awaken at night with heartburn, belching or coughing. He constantly snores, and frequently this is loud enough that others complain. He frequently has difficulty sleeping when he has a cold. He never wakes up gasping for breath at night but he does frequently has breathing problems at night observed by others. He does not sweat excessively at night. He frequently notices his heart pounding or beating irregularly at night. He rarely falls asleep during the day, never falls asleep involuntarily or while driving. He rarely has loss of muscle tone with strong emotion. He rarely has daytime difficulties due to excessive sleepiness. He is an administrative services assistant. He occasionally feels paralyzed on waking or falling asleep. He never has vivid dreamlike scenes upon awakening or falling asleep. He occasionally feels afraid to go to sleep. He rarely has nightmares. He occasionally remembers his dreams. He rarely has racing thoughts. He occasionally feels sad, depressed, or anxious. He rarely has muscular tension. He never notices parts of his body jerking. He does not kick at night. He does not have crawling or aching feelings in his legs. He does not have any kind of leg pain at night. He rarely has morning jaw pain. He does not grind his teeth during sleep. He occasionally is bothered by pain during the day. He has never awakened by pain during the night. He never wakes up feeling stiff in the morning. He rarely wakes up with sore achy muscles. He occasionally wakes up with pain in the neck and spine. He has fatigue. His normal bedtime is between 8:00 p.m. and 10:00 p.m., falling asleep within 20-30 minutes, waking 3 or more times every night for less than a minute. Sometimes he adjust his position and returns to sleep. His normal wake time is 7:00 a.m.. On weekends, bedtime is later, between 10:00 p.m. and 12 midnight, wake time is 7:00 a.m.. He estimates getting at most 6 hours of sleep per night. He does not generally take naps in the afternoon or evening. A short nap lasting 10-15 minutes is not refreshing. He is usually drowsy for 1 hour after waking. He feels better in the morning compared to other times of day. Habits: Tobacco: never smoker Caffeine: none Alcohol: none Recreational substances: none [facility] Past Medical History Medical History (Updated 08/01/24 @ 22:47 by Felicity He MD) Obstructive sleep apnea Anxiety Mild intermittent asthma Chronic bilateral low back pain with sciatica Obesity (BMI 30-39.9) Snoring Social History Social History Smoking status: Never smoker Alcohol intake: never Substance use: never Living arrangements: with family Occupation/Education: occupation Medications Home Medications ?Medication ?Instructions ?Recorded ?Confirmed ?Type albuterol sulfate 90 mcg/actuation 2 puff inhalation Q8H PRN 12/30/23 12/31/23 History aerosol inhaler cetirizine 10 mg capsule (All Day 10 mg PO DAILY PRN 12/30/23 12/31/23 History Allergy (cetirizine)) fluticasone propionate 50 2 spray intranasal DAILY PRN 12/30/23 12/31/23 History mcg/actuation nasal spray,suspension (Flonase Allergy Relief) eszopiclone 2 mg tablet 2 mg PO ONCE #1 tablet 12/31/23 12/31/23 Rx eszopiclone 3 mg tablet 3 mg PO ONCE #1 tablet 04/14/24 Rx fluticasone propionate 50 1 spray intranasal DAILY #16 grams 05/09/24 Rx mcg/actuation nasal spray,suspension (Flonase Allergy Relief) Sleep Procedure A full CPAP polysomnogram using the [employer] multi-channel system recorded the standard physiologic parameters including EEG, EOG, submentalis EMG, anterior tibialis EMG, EKG, body position, nasal and oral airflow using nasal pressure sensor and thermistor. Respiratory parameters of chest and abdominal movements were recorded with Respiratory Inductance Plethysmography belts. Oxygen saturation was recorded by pulse oximetry. Video monitoring was also performed. Sleep stages, periodic limb movements, and EEG arousals were scored in 30 second epochs according to the criteria of the AASM Scoring Manual. The Apnea-Hypopnea Index was calculated using CMS guidelines for definition of hypopnea while scoring respiratory events. The patient self-administered Lunesta 3 mg at the beginning of the study. The patient was started on CPAP using a large ResMed AirTouch F20 fullface mask with heated humidity, said that he did not feel that the initial pressure was enough at 5 cm so he was started at CPAP 6 with 2 cm EPR. Initial pressure was CPAP 6 cm with 2 cm EPR, titrated through CPAP 8 with 2 EPR, CPAP 9 with 2 EPR and CPAP 10 with 2 cm EPR. At CPAP 10 with 2 cm EPR, the patient spent 65.5 minutes in bed, 5 minutes awake, 58.5 minutes in non-REM and 2 minutes in REM. Sleep efficiency was 92.4%. The residual apnea-hypopnea index was 0. Lowest saturation 93%. He had supine REM on this setting. Sleep Architecture The total recording time was 517.3 minutes. The total sleep time was 458.0 minutes. Sleep latency was 25.4 minutes. REM latency was 90.5 minutes. Sleep efficiency was 88.5%. The patient had 28 awakenings for an awakening index of 3.7. Wake after Sleep Onset time was 33.5 minutes. The patient spent 38.0 minutes, 8.3% of total sleep time in Stage N1. The patient spent 343.0 minutes, 74.9% in Stage N2. The patient spent 0.0 minutes, 0.0% in Stage N3. The patient spent 77.0 minutes, 16.8% in Stage REM. Respiratory Analysis The patient had 13 hypopneas, no obstructive apneas, no mixed apneas, and 3 central apneas for an overall Apnea Hypopnea Index of 2.1 events per hour. The REM Apnea Hypopnea Index was 1.6. The NREM Apnea Hypopnea Index was 2.2. The patient had a Central Apnea Hypopnea Index of 0.4. There were no Respiratory Effort Related Arousals. The Respiratory Disturbance Index is 2.5 events per hour. There was no evidence of Kris-Baker Respirations. Arousals There were 105 total arousals for an arousal index of 13.8. There were 72 spontaneous arousals for an index of 9.4. There were 7 arousals due to respiratory events for an index of 0.9. There were 6 arousals due to periodic limb movements for an index of 0.8. There were 20 arousals due to isolated limb movements for an index of 2.6. Periodic Limb Movements The patient had 36 isolated limb movements with an index of 4.7. The patient had 103 periodic limb movements with index of 13.5. Patient had a total of 139 limb movements with a total limb movement index of 18.2. Oximetry Data The patient had an average oxygen saturation of 93.7% in sleep with a minimum oxygen saturation of 83% and a maximum oxygen saturation of 98%. The patient had 16 oxygen desaturations that were 4% or greater resulting in an Oxygen Desaturation Index of 2.1. The patient spent 2.7 minutes, 0.5% of total sleep time with an oxygen saturation below 88%. Snoring Profile Snoring was not present during the titration. Cardiac Profile The EKG showed normal sinus rhythm. The patient had an average pulse rate of 62.1 bpm with a minimum pulse rate of 51 bpm and a maximum pulse rate of 87 bpm. No arrhythmias noted. EEG Profile EEG was unremarkable, no evidence of seizures. Assessment and Plan Assessment and Plan (1) Obstructive sleep apnea: Code(s): G47.33 - Obstructive sleep apnea (adult) (pediatric) Status: Acute Assessment and Plan: This CPAP titration on July 07, 2024 shows an optimal pressure of CPAP 10 with 2 cm EPR using a large ResMed AirTouch fullface mask with heated humidity. The residual apnea-hypopnea index was 0 and supine REM occurred. Another acceptable pressure would be CPAP 9 with 2 of EPR, the residual AHI was 0.7. The patient should be prescribed this ResMed equipment as well as tubing, filters and reservoir. This should be used with all episodes of sleep. Compliance should be reviewed within 31-90 days of starting therapy for usage greater than 4 hours per night greater than 70% of the nights. The patient should be asked about symptoms such as excessive daytime sleepiness, quality of sleep, decreased nocturia, increased mental functioning such as memory, mood, and concentration. BMI is 44. Weight management is advised. Clinical data suggests that weight loss of 10% can reduce the severity of respiratory events and snoring and improve AHI by as much as 25%. Data The data obtained during this sleep study is adequate for interpretation. Certification This sleep study has been reviewed by a board certified sleep medicine physician.
[2024-08-02 12:52] VITALS: BMI 44.0
== END 2024-07-08 06:43 | disposition home or self-care (01) ==
PROVIDERS: PCP Family Medicine; Visit Provider Nurse Practitioner Family
DX: G47.33 Obstructive sleep apnea (adult) (pediatric) (principal)
CPT/HCPCS: 95811